=== PATIENT | female | born 1975 | race Two or more races ===

== ENCOUNTER 2022-10-20 04:56 | Day surgery (SDC) | payer OTHER ==
[2022-10-19 07:19] VITALS: BMI 25.0
[2022-10-20 10:46] VITALS: BP 124/75; PULSE 88; RESP 15
[2022-10-20 15:23] VITALS: TEMP 97.1
== END 2022-10-20 11:00 | disposition home or self-care (01) ==
LOC: JASU-ENDO 04:56
PROVIDERS: ATTEND Student in an Organized Health Care Education/Training Program
PROC: 0DBH8ZX Excision of Cecum, Via Natural or Artificial Opening Endoscopic, Diagnostic (ICD-10-PCS; 2022-10-20)
PROC: 0DBP8ZX Excision of Rectum, Via Natural or Artificial Opening Endoscopic, Diagnostic (ICD-10-PCS; 2022-10-20)
PROC: 0D5L8ZZ Destruction of Transverse Colon, Via Natural or Artificial Opening Endoscopic (ICD-10-PCS; principal; 2022-10-20 09:30)
DX: D12.0 Benign neoplasm of cecum (principal); D12.3 Benign neoplasm of transverse colon; K62.1 Rectal polyp
CPT/HCPCS: 88305-TC